=== PATIENT | female | born 1985 | race Caucasian/White ===

== ENCOUNTER 2016-10-03 19:28 | Emergency (ER) | payer SELFPAY ==
[~2016-10-03] VITALS: Ht 160 cm; Wt 97.2 kg
[~2016-10-03 19:28] MED LIST: BACTRIM,SEPT1 TABLET PO; FLEXERIL5 MG PO; KEFLEX500 MG PO; MOTRIN600 MG PO; NAPROSYN500 MG PO; NORCO 5/3251 TABLET PO; PRENATAL1 EACH PO; PROVERA,CYCRIN10 MG PO; TRAMADOL HCL50 MG PO; ZOFRAN ODT4 MG PO
[2016-10-03 20:10] LABS: HEMATOCRIT 43.7 % (36.0-46.0); MCH 28.6 PG (29.0-34.0); MCHC 33.4 G/DL (30.0-36.0); MCV 85.7 FL (83-99); MEAN PLAT.VOLUME 8.8 uM^3 (9.5-12.4); PLATELET COUNT 262 K/uL (156-360); RBC DIS.WIDTH-CV 12.1 % (11.8-14.6); RBC DIS.WIDTH-SD 37.7 % (39-53); WHITE BLOOD COUNT 8.8 K/uL (4.1-10.2)
[2016-10-03 20:22] LABS: CHLORIDE 105 mEq/L (99-109); POTASSIUM 3.8 mEq/L (3.7-5.4); SODIUM 139 mEq/L (136-147)
[2016-10-03 20:24] LABS: GLUCOSE 104 mg/dL (70-99)
[2016-10-03 20:25] LABS: ANION GAP 10 MEQ/L (2-14)
[2016-10-03 20:28] LABS: GFR ESTIMATE (CALCULATED) > 59 mL/min/
[2016-10-03 20:29] LABS: UREA NITROGEN (BUN) 9 mg/dL (9-23)
[2016-10-03 20:32] LABS: TROP-I INTERPRETATION NEGATIVE; TROPONIN-I < 0.01 ng/mL (0.0-0.30)
[2016-10-03 22:42] LABS: QUANTITATIVE HCG < 4.0 MIU/ML
[2016-10-03 22:45] LABS: D-DIMER ELISA 0.28 mg/L FEU (< 0.57)
[2016-10-04 00:12] VITALS: BP 125/75
== END 2016-10-04 00:13 | disposition home or self-care (01) ==
LOC: EME 19:28
DX: R00.2 Palpitations (principal); M79.89 Other specified soft tissue disorders; M54.2 Cervicalgia; F43.9 Reaction to severe stress, unspecified; R07.9 Chest pain, unspecified; R20.0 Anesthesia of skin; R11.0 Nausea; K92.1 Melena
CPT/HCPCS: 71020; 80048; 84484; 84702; 85027; 85379; 93005; 99281; 99284; J7030

== ENCOUNTER 2017-02-26 20:23 | Emergency (ER) | payer OTHER ==
[~2017-02-26] VITALS: Ht 154.9 cm; Wt 88.1 kg
[2017-02-26 21:35] LABS: EOSINOPHIL (%) 6.5 % (0-5); EOSINOPHIL COUNT 0.5 K/uL (0-0.3); HEMATOCRIT 38.1 % (36.0-46.0); IMMATURE GRANULOCYTE (%) 0.4 % (0.0-0.7); INSTRUMENT ABS NEUTROPHIL CT 3.5 K/uL; LYMPHOCYTE COUNT 2.9 K/uL (1.0-2.8); MCHC 34.1 G/DL (30.0-36.0); MEAN PLAT.VOLUME 8.9 uM^3 (9.5-12.4); MONOCYTE (%) 10.2 % (3-12); MONOCYTE COUNT 0.8 K/uL (0-0.8); NEUTROPHIL (%) 45.3 % (45-76); NEUTROPHIL COUNT 3.5 K/uL (1.8-6.4); PLATELET COUNT 192 K/uL (156-360); RBC DIS.WIDTH-CV 12.2 % (11.8-14.6); RBC DIS.WIDTH-SD 37.2 % (39-53); RED BLOOD COUNT 4.48 M/uL (3.80-5.20); WHITE BLOOD COUNT 7.7 K/uL (4.1-10.2)
[2017-02-26 21:44] LABS: AMPHETAMINE NEGATIVE (500 ng/mL); BARBITURATES NEGATIVE (200 ng/mL); BENZODIAZEPINES NEGATIVE (150 ng/mL); COCAINE NEGATIVE (150 ng/mL); INTERNAL CONTROLS VALID? YES; METHADONE NEGATIVE (200 ng/mL); METHAMPHETAMINE NEGATIVE (500 ng/mL); OPIATES (MORPHINE) NEGATIVE (100 ng/mL); OXYCODONE NEGATIVE (100 ng/mL); PHENCYCLIDINE NEGATIVE (25 ng/mL); PROPOXYPHENE NEGATIVE (300 ng/mL); THC CANNABINOIDS NEGATIVE (50 ng/mL); TRICYCLIC ANTIDEPRESSANTS NEGATIVE (300 ng/mL)
[2017-02-26 21:46] LABS: CHLORIDE 104 mEq/L (99-109); POTASSIUM 3.6 mEq/L (3.7-5.4); SODIUM 139 mEq/L (136-147)
[2017-02-26 21:46] LABS: ADD MIUA? YES; BILIRUBIN NEGATIVE; BLOOD NEGATIVE; COLOR YELLOW ((YELLOW)); GLUCOSE (STRIP) NEGATIVE; KETONES NEGATIVE; LEUKOCYTES TRACE; NITRITE NEGATIVE; PROTEIN (STRIP) NEGATIVE; SPECIFIC GRAVITY 1.015 (1.000-1.030); UROBILINOGEN 0.2 MG/DL (0.2-1.0)
[2017-02-26 21:49] LABS: GLUCOSE 97 mg/dL (70-99)
[2017-02-26 21:50] LABS: ANION GAP 10 MEQ/L (2-14); TOTAL BILIRUBIN 0.2 mg/dL (0.0-1.0)
[2017-02-26 21:51] LABS: SERUM ETHYL ALCOHOL < 10 mg/dL
[2017-02-26 21:52] LABS: ALKALINE PHOSPHATASE 70 IU/L (3-129); GFR ESTIMATE (CALCULATED) > 59 mL/min/
[2017-02-26 21:53] LABS: UREA NITROGEN (BUN) 9 mg/dL (9-23)
[2017-02-26 21:56] LABS: LIPASE 22 U/L (1.0-51.0)
[2017-02-26 22:02] LABS: QUANTITATIVE HCG < 4.0 MIU/ML
[2017-02-26 22:04] LABS: BACTERIA RARE /HPF; EPITHELIAL CELLS RARE /HPF; MUCUS TRACE /LPF; RED BLOOD CELLS 0-5 /HPF (0-5); UCUL ADDED? NO; WHITE BLOOD CELLS 0-5 /HPF (0-5)
[2017-02-27] MEDS ORDERED: KEFLEX500 MG PO (01:00)
[2017-02-27 01:08] VITALS: BP 134/86
== END 2017-02-27 01:11 | disposition home or self-care (01) ==
LOC: EME 20:23
PROVIDERS: Emergency Medicine
DX: F43.0 Acute stress reaction (principal); R41.82 Altered mental status, unspecified
CPT/HCPCS: 70450; 71010; 74177; 80053; 81003; 83690; 84702; 85025; 93971; 99281; 99285; G0480; J1200; J2405; J2765; J7030

== ENCOUNTER 2017-10-13 13:51 | Emergency (ER) | payer OTHER ==
[~2017-10-13] VITALS: Ht 154.9 cm; Wt 97.2 kg
[2017-10-13] MEDS ORDERED: VALIUM2 MG PO (15:09)
[2017-10-13] MEDS ORDERED: MOTRIN600 MG PO (15:09)
[2017-10-13 15:33] VITALS: BP 120/81
== END 2017-10-13 15:34 | disposition home or self-care (01) ==
LOC: EME 13:51 → EXP 13:51
DX: M54.2 Cervicalgia (principal); R42 Dizziness and giddiness; V49.50XA Passenger injured in collision with unspecified motor vehicles in traffic accident, initial encounter; Y92.410 Unspecified street and highway as the place of occurrence of the external cause; Z88.0 Allergy status to penicillin
CPT/HCPCS: 99281; 99284